=== PATIENT | female | born 1950 | race Caucasian/White ===

== ENCOUNTER 2018-12-30 09:15 | Inpatient (IN) | payer OTHER ==
[~2018-12-30] VITALS: Ht 160 cm; Wt 78.0 kg
[2018-12-30] MEDS ORDERED: COZAAR50 MG PO (10:47)
[2018-12-30] MEDS ORDERED: SYNTHROID50 MCG PO (10:48)
[2018-12-30] MEDS ORDERED: LOVASTA PO (10:48)
[2018-12-30] MEDS ORDERED: ZANTAC150 M3 PO (10:49)
[2018-12-30] MEDS ORDERED: ASPIR 8181 MG PO (10:49)
[2018-12-30] MEDS ORDERED: PROTONIX20 MG PO (10:49)
[2019-01-05] MEDS ORDERED: ATORVASTATIN CA10 MG PO (08:15)
[2019-01-05] MEDS ORDERED: ATENOLOL25 MG PO (08:15)
[2019-01-05] MEDS ORDERED: LOVASTATIN20 MG (08:20)
== END 2019-01-07 17:10 | DRG 470 ==
LOC: O/R 09:15 → SURG 01-05 04:56 → O/R 01-05 04:56 → SURH 01-05 09:00 → SURG 01-05 10:53
PROVIDERS: ADMIT Orthopaedic Surgery
PROC: 0SRD0J9 Replacement of Left Knee Joint with Synthetic Substitute, Cemented, Open Approach (ICD-10-PCS; principal; 2019-01-05 09:00)
DX: M17.12 Unilateral primary osteoarthritis, left knee (principal); M81.0 Age-related osteoporosis without current pathological fracture